=== PATIENT | female | born 1955 | race Caucasian/White ===

== ENCOUNTER 2018-01-29 13:48 | Emergency (ER) | payer MEDICARE, BC ==
--- NOTE | 2018-01-29 14:30 | ERPHSYRPT ---
- History of Present Illness Time Seen by Provider: 01/29/18 14:24 Source: patient, EMS Exam Limitations: no limitations Patient Subjective Stated Complaint: Pt states "I slipped and I think I hit the rocking chair." Triage Nursing Assessment: Pt alert and oriented X 3, skin pwd Pt arrived with bandage on left burrows, approx 12 cm x 1 cm, no bleeding at this time. Physician History: The patient is a 62-year-old female brought in by ambulance after tripping and hitting her left lower leg on a rocking chair, causing a skin tear to her leg. Her tetanus vaccination is within the last 5 years. Her past medical history is significant for congestive heart failure, hypothyroidism, GERD, and hypertension. Occurred: just prior to arrival Reason for Fall: tripped, fell from standing pos Injuries/Pain Location: lower extremity (left lower leg) Loss of Consciousness: no loss of consciousness Quality: sharpness Severity of Pain-Max: mild Severity of Pain-Current: mild Modifying Factors: Improves With: nothing Associated Symptoms (Fall): denies symptoms Allergies/Adverse Reactions: povidone-iodine [From Betadine] Allergy (Intermediate, Verified 01/29/18 14:02) soap [From Betadine] Allergy (Intermediate, Verified 01/29/18 14:02) morphine Adverse Reaction (Intermediate, Verified 01/29/18 14:02) lethargic adhesive tape Adverse Reaction (Mild, Verified 01/29/18 14:02) Skin Irritation aspirin Adverse Reaction (Mild, Verified 01/29/18 14:02) abdominal irritation Home Medications: Amitriptyline HCl 100 mg PO DAILY 01/29/18 [History] Furosemide 40 mg [Lasix 40 MG] 40 mg PO DAILY 01/29/18 [History] Hydrocodone/APAP 10/325 mg [Kingsland 10/325 MG Tablet] 1 tab PO Q4H PRN PRN 01/29/18 [History] Hydroxyzine HCl 25 mg [Atarax 25 mg] 25 mg PO DAILY 01/29/18 [History] Levothyroxine Sodium [Levoxyl] 150 mcg PO DAILY 01/29/18 [History] Lisinopril 40 mg PO DAILY 01/29/18 [History] Pantoprazole 40 mg [Protonix 40 mg IV] 40 mg PO DAILY 01/29/18 [History] Torsemide 20 mg [Demadex 20 mg] 20 mg PO DAILY 01/29/18 [History] Hx Tetanus, Diphtheria Vaccination/Date Given: Yes Hx Influenza Vaccination/Date Given: Yes Immunizations Up to Date: Yes - Review of Systems Constitutional: Other (obese), No Fever, No Chills Eyes: No Symptoms Ears, Nose, & Throat: No Symptoms Respiratory: No Cough, No Dyspnea Cardiac: No Chest Pain, No Edema, No Syncope Abdominal/Gastrointestinal: No Abdominal Pain, No Nausea, No Vomiting, No Diarrhea Genitourinary Symptoms: No Dysuria Musculoskeletal: Fall, Injury Skin: Other (skin tear) Neurological: No Dizziness, No Focal Weakness, No Sensory Changes Psychological: No Symptoms Endocrine: No Symptoms Hematologic/Lymphatic: No Symptoms Immunological/Allergic: No Symptoms All Other Systems: Reviewed and Negative - Past Medical History Pertinent Past Medical History: Yes Neurological History: No Pertinent History ENT History: No Pertinent History Cardiac History: High Cholesterol, Hypertension Respiratory History: COPD Endocrine Medical History: No Pertinent History Musculoskeletal History: No Pertinent History GI Medical History: GERD History: No Pertinent History Psycho-Social History: Anxiety Female Reproductive Disorders: No Pertinent History Other Medical History: water retention - Past Surgical History Past Surgical History: Yes Other Surgical History: cecily. 3 X c section. hysterectomy. tonsilectomy. liver rerouted. appendectomy - Social History Smoking Status: Current every day smoker How long have you smoked: years Exposure to second hand smoke: Yes Drug Use: none Patient Lives Alone: No - Female History Hx Last Menstrual Period: no more Hx Now: No - Nursing Vital Signs Nursing Vital Signs: Initial Vital Signs Temperature 98.8 F 01/29/18 13:51 Pulse Rate 108 H 01/29/18 13:51 Respiratory Rate 18 01/29/18 13:51 Blood Pressure 99/65 01/29/18 13:51 O2 Sat by Pulse Oximetry 92 L 01/29/18 13:51 Pain Scale Pain Intensity 8 - Nunda Coma Score Best Eye Response (Shivani): (4) open spontaneously Best Verbal Response (Nunda): (5) oriented Best Motor Response (Nunda): (6) obeys commands Nunda Total: 15 - Physical Exam General Appearance: no apparent distress, alert Head Injury: no evidence of injury Eye Exam: PERRL/EOMI ENT Exam: airway nml Neck Exam: normal inspection, No tenderness Respiratory/Chest Exam: normal breath sounds, No chest tenderness, No respiratory distress Cardiovascular Exam: normal heart sounds, regular rate/rhythm Gastrointestinal Exam: soft, other (obese), No tenderness, No distention, No guarding, No ecchymosis Rectal Exam: not done Back Exam: normal inspection, No vertebral tenderness Extremity Exam: swelling (bilateral leg edema) Neurologic Exam: alert, oriented x 3, cooperative, sensation nml, No motor deficits Skin Exam: laceration (exam of left lower le X 4 cm skin tear to distal anterior skin.) SpO2 Interpretation: normal SpO2: 92 Oxygen Delivery: Room Air Ordered Tests: Active Orders 24 hr Category Date Time Status Wound Care STAT Care 01/29/18 14:14 Active - Progress Progress: improved Counseled pt/family regarding: diagnosis - Departure Time of Disposition: 14:29 Departure Disposition: Home Clinical Impression: Skin tear Condition: Stable Critical Care Time: No Additional Instructions: You fell that caused a skin tear to your left lower leg. You had the skin tear partially closed with Steri-Strips. Take Keflex 500 mg 3 times a day for 10 days. Follow-up with a local physician before the end of the week. Prescriptions: Cephalexin [Keflex] 500 mg PO TID #30 capsule Naproxen 500 mg PO BID PRN #30 tab
[2018-01-29 14:43] VITALS: BP 114/65; PULSE 112; O2SAT 99
== END 2018-01-29 14:57 | disposition home or self-care (01) ==
LOC: ED 13:48
DX: S81.812A Laceration without foreign body, left lower leg, initial encounter (principal); I50.9 Heart failure, unspecified; K21.9 Gastro-esophageal reflux disease without esophagitis; W01.190A Fall on same level from slipping, tripping and stumbling with subsequent striking against furniture, initial encounter; Z79.899 Other long term (current) drug therapy; E78.00 Pure hypercholesterolemia, unspecified; I10 Essential (primary) hypertension; J44.9 Chronic obstructive pulmonary disease, unspecified
CPT/HCPCS: 99283